=== PATIENT | female | born 1980 ===

== ENCOUNTER 2019-06-07 15:19 | Emergency (ER) | payer OTHER ==
[~2019-06-07] VITALS: Ht 175.3 cm; Wt 72.6 kg
[~2019-06-07 15:19] MED LIST: DEMEBORO OTIC DROPS OT; HUMIRA PEN40 MG/0.8
== END 2019-06-07 20:37 | disposition home or self-care (01) ==
LOC: ER 15:19
DX: M62.838 Other muscle spasm (principal); M25.512 Pain in left shoulder

== ENCOUNTER 2020-08-26 16:22 | Emergency (ER) | payer OTHER ==
[~2020-08-26] VITALS: Ht 175.3 cm; Wt 69.4 kg
== END 2020-08-26 20:15 | disposition home or self-care (01) ==
LOC: ER 16:22
DX: J06.9 Acute upper respiratory infection, unspecified (principal); Z20.828 Contact with and (suspected) exposure to other viral communicable diseases

== ENCOUNTER 2021-05-10 08:56 | Outpatient (CLI) | payer OTHER ==
[2021-05-11] MEDS ORDERED: CYMBALTA20 MG PO (16:34)
== END 2021-05-10 16:18 | disposition home or self-care (01) ==
LOC: RAD 08:56
PROVIDERS: ATTEND Obstetrics & Gynecology
DX: D35.1 Benign neoplasm of parathyroid gland (principal); N64.4 Mastodynia; Z12.31 Encounter for screening mammogram for malignant neoplasm of breast

== ENCOUNTER 2021-05-11 15:34 | Emergency (ER) | payer OTHER ==
[~2021-05-11] VITALS: Ht 177.8 cm; Wt 83.0 kg
[2021-05-11] MEDS ORDERED: CYMBALTA20 MG PO (16:34)
== END 2021-05-11 18:00 | disposition home or self-care (01) ==
LOC: ER 15:34
DX: R06.02 Shortness of breath (principal)

== ENCOUNTER 2021-08-30 09:41 | Outpatient (CLI) | payer OTHER ==
[~2021-08-30 09:41] MED LIST changes: +CYMBALTA20 MG PO
== END 2021-08-30 09:45 | disposition home or self-care (01) ==
LOC: SONOGRAMA 09:41
PROVIDERS: ATTEND Pathology Anatomic Pathology & Clinical Pathology
DX: R59.0 Localized enlarged lymph nodes (principal)

== ENCOUNTER 2022-03-18 12:31 | Outpatient (CLI) | payer OTHER | END 2022-03-18 13:58 | disposition home or self-care (01) | LOC: MAMO-SONO 12:31 | PROVIDERS: ATTEND Obstetrics & Gynecology | DX: Z12.31 Encounter for screening mammogram for malignant neoplasm of breast (principal); N64.4 Mastodynia ==

== ENCOUNTER 2022-04-09 16:47 | Emergency (ER) | payer OTHER ==
[~2022-04-09] VITALS: Ht 175.3 cm; Wt 72.6 kg
[2022-04-09] MEDS ORDERED: BACLOFEN10 MG PO (19:15)
[2022-04-09] MEDS ORDERED: ULTRAM50 MG PO (19:15)
== END 2022-04-09 19:25 | disposition home or self-care (01) ==
LOC: ER 16:47
DX: M54.59 Other low back pain (principal); R25.2 Cramp and spasm